=== PATIENT | male | born 1975 | race Hispanic/Latino ===

== ENCOUNTER 2017-02-14 11:01 | Emergency (ER) | payer SELFPAY ==
[2017-02-14 11:21] VITALS: BP 129/72; PULSE 72; RESP 18; TEMP 98.4; O2SAT 98
--- NOTE | 2017-02-14 12:33 | ED PDOC ---
Lower Extremity Pain/Injury Time Seen by Provider: 02/14/17 11:25 Chief Complaint (Nursing): Lower Extremity Problem/Injury Chief Complaint (Provider): Lower Extremity Problem/Injury History Per: Patient History/Exam Limitations: no limitations Onset/Duration Of Symptoms: Days (x3 days) Current Symptoms Are (Timing): Still Present Additional Complaint(s): 41 y/o male presents to the emergency department with a complaint of left foot pain and swelling [place] the [place]. Patient states he was experiencing trouble with ambulation since last night. Denies wearing surf shoes, any injury, fall, numbness, tingling, fever, cough, congestion, shortness of breath, calf tenderness or itchiness. Past Medical History Reviewed: Historical Data, Nursing Documentation, Vital Signs Vital Signs: Last Vital Signs Temp 98.4 F 02/14/17 11:18 Pulse 72 02/14/17 11:18 Resp 18 02/14/17 11:18 BP 129/72 02/14/17 11:18 Pulse Ox 98 02/14/17 11:18 - Medical History PMH: No Chronic Diseases - Surgical History Surgical History: No Surg Hx - Family History Family History: States: Unknown Family Hx - Social History Alcohol: None Drugs: Denies - Home Medications Home Medications: Ambulatory Orders Medication Instructions Recorded Ibuprofen [Motrin] 600 mg PO TID 7 Days 02/14/17 - Allergies Allergies/Adverse Reactions: Allergies Allergy/AdvReac Type Severity Reaction Status Date / Time No Known Allergies Allergy Verified 02/14/17 11:18 Review of Systems Constitutional: Negative for: Fever ENT: Negative for: Nose Congestion Respiratory: Negative for: Cough, Shortness of Breath Musculoskeletal: Positive for: Foot Pain (Left foot pain and swelling). Negative for: Neck Pain, Other (calf tenderness) Skin: Negative for: Other (itchiness) Neurological: Negative for: Numbness (tingling) Physical Exam - Reviewed Nursing Documentation Reviewed: Yes Vital Signs Reviewed: Yes - Physical Exam Appears: Positive for: Non-toxic, No Acute Distress Head Exam: Positive for: ATRAUMATIC, NORMAL INSPECTION, NORMOCEPHALIC Skin: Positive for: Normal Color, Warm, Dry Cardiovascular/Chest: Positive for: Regular Rate, Rhythm. Negative for: Murmur Respiratory: Positive for: Normal Breath Sounds. Negative for: Accessory Muscle Use, Respiratory Distress Pulses-Dorsalis Pedis (L): 2+ Pulses-Dorsalis Pedis (R): 2+ Extremity: Positive for: Normal ROM, Tenderness (Tenderness to the distal foot region in the middle with swelling to the localized area. ), Capillary Refill ( Capillary refill intact. ), Other (Mild blanching erythema to the left foot. ). Negative for: Pedal Edema, Calf Tenderness, Swelling (Right foot show no sign of swelling) Neurologic/Psych: Positive for: Alert, Oriented - ECG O2 Sat by Pulse Oximetry: 98 (RA) Pulse Ox Interpretation: Normal - Radiology X-Ray: Interpreted by Me, Viewed By Me, Read By Radiologist X-Ray Interpretation: Fracture (2nd metatarsal) - Progress ED Course And Treament: 1245: Spoke with podiatry. Will see pt. 1351: Stable. Podiatry splinted pt. No weight on foot. Fu with Dr. Saleem. Medical Decision Making Medical Decision Making: Time: 11:30 Initial impression: Left foot pain Initial plan: --Motrin 600 mg PO --Foot Left 3 Views Routine (RAD) Time:12:37 --Foot x-ray show sign of fracture to the metatarsal right side region of the left foot. --Pending podiatry wet cotton feeder. Scribe Attestation: Documented by Daria Sousa, acting as a scribe for Israel Mark MD. Provider Scribe Attestation: All medical record entries made by the Scribe were at my direction and personally dictated by me. I have reviewed the chart and agree that the record accurately reflects my personal performance of the history, physical exam, medical decision making, and the department course for this patient. I have also personally directed, reviewed, and agree with the discharge instructions and disposition. Disposition - Clinical Impression Clinical Impression: Foot fracture - Patient ED Disposition Is Patient to be Admitted: No Counseled Patient/Family Regarding: Studies Performed, Diagnosis, Need For Followup, Rx Given - Disposition Referrals: Med Saleem DPM [Medical Doctor] - 02/15/17 Disposition: Routine/Home Disposition Time: 13:53 Condition: STABLE Additional Instructions: Return if not better in 3 days. Prescriptions: Ibuprofen [Motrin] 600 mg PO TID 7 Days Instructions: Foot Fracture in Adults (ED)
--- NOTE | 2017-02-14 12:43 | RAD ---
PROCEDURE: Left Foot Radiographs. HISTORY: pain COMPARISON: None. FINDINGS: BONES: Minimally displaced fracture involving the lateral cortex of the 2nd metatarsal. JOINTS: Normal. SOFT TISSUES: Normal. OTHER FINDINGS: None. IMPRESSION: Minimally displaced fracture involving the lateral cortex of the 2nd metatarsal. Discussed with Dr Mark at 12:45 p.m. on 02/14/2017.
--- NOTE | 2017-02-14 14:07 | CP.PCM.CON ---
History of Present Illness - History of Present Illness History of Present Illness: 41 y/o male with no significant PMHx presents to ED with left foot pain. Podiatry consulted for incomplete fracture of the left foot 2nd metatarsal. Patient states he was surfing two days ago and felt mild pain in his left foot afterwards. Patient states he began having difficult walking yesterday and noted swelling on the top of the foot. Patient admits icing the foot but did not attempt any other treatment. Patient states the pain is a shooting pain that comes when he tries to walk. Patient denies any numbness or tingling in the foot. Patient denies any F/C/N/V/SOB. PSHx: right ankle surgery with screws and plates, shoulder surgery with screws and plates All: NKDA Social: 3 cigs/day, social marijuana use, denies EtOH use Review of Systems - Review of Systems All systems: reviewed and no additional remarkable complaints except (per HPI) Past Patient History - Past Social History Alcohol: None Drugs: Denies - PSYCHIATRIC Hx Substance Use: No - SURGICAL HISTORY Hx Surgeries: Yes Hx Orthopedic Surgery: Yes - ANESTHESIA Hx Anesthesia: Yes Hx Anesthesia Reactions: No Meds Home Medications: Home Medication List Medication Instructions Recorded Confirmed Type Ibuprofen [Motrin] 600 mg PO TID 7 Days 02/14/17 Rx Allergies/Adverse Reactions: Allergies Allergy/AdvReac Type Severity Reaction Status Date / Time No Known Allergies Allergy Verified 02/14/17 11:18 Physical Exam - Constitutional Appears: Well, Non-toxic, No Acute Distress - Extremities Exam Additional comments: Left lower extremity focused examination: Vasc: DP/PT 2/4. CFT < 3 sec to all digits. Temperature gradient warm to cool. No pedal edema. Derm: Mild erythema noted to dorsum of foot. Skin and soft tissue intact, no open lesions, no clinical signs of infection. Neuro: Protective sensation grossly intact Ortho: Mild tenderness to palpation of dorsum of foot. Muscle strength 5/5 in all directions. - Neurological Exam Neurological exam: Alert, Oriented x3 - Psychiatric Exam Psychiatric exam: Normal Affect, Normal Mood Results - Vital Signs Recent Vital Signs: Last Vital Signs Temp 98.4 F 02/14/17 11:18 Pulse 72 02/14/17 11:18 Resp 18 02/14/17 11:18 BP 129/72 02/14/17 11:18 Pulse Ox 98 02/14/17 13:54 Assessment & Plan - Assessment and Plan (Free Text) Assessment: 41 y/o male seen in ED and podiatry consulted for left foot pain secondary to left foot incomplete non-displaced 2nd metatarsal fracture. Plan: Pt seen resting comfortably in ED- podiatry consulted for L foot 2nd metatarsal fracture Discussed plan in detail with attending Dr. Gann Vitals reviewed- afebrile X-rays reviewed: revealed incomplete transverse non-displaced medial cortical fracture of left 2nd metatarsal shaft Applied short leg posterior splint to left lower extremity Patient instructed to utilize crutches and not bear any weight on the left foot Patient instructed to keep dressing clean, dry and intact Discussed options for patient to F/U as outpatient in Dr. Gann or Dr. Saleem' s office in the next seven days - patient would like to follow up at [place] office with Dr. Saleem Thank you for this consult
== END 2017-02-14 14:21 | disposition home or self-care (01) ==
LOC: H.ER 11:01
DX: S92.322A Displaced fracture of second metatarsal bone, left foot, initial encounter for closed fracture (principal); Y93.18 Activity, surfing, windsurfing and boogie boarding; Y92.832 Beach as the place of occurrence of the external cause

== ENCOUNTER 2017-03-08 00:30 | Emergency (ER) | payer BC ==
[2017-03-08 00:50] VITALS: BP 151/92; PULSE 99; RESP 18; TEMP 98.9; O2SAT 99
== END 2017-03-08 07:00 | disposition home or self-care (01) ==
LOC: H.ER 00:30
DX: Z02.89 Encounter for other administrative examinations (principal)